=== PATIENT | female | born 1990 | race American Indian/Alaskan Native ===

== ENCOUNTER 2018-11-23 03:13 | Emergency (ER) | payer MEDICAID ==
[2018-11-23 03:31] VITALS: BP 127/62
[2018-11-23] MEDS ORDERED: IBUPROFEN 800 MG TAB PO ONE (04:42)
--- NOTE | 2018-11-23 04:53 | Emergency Department Report ---
ED Female HPI - General Chief complaint: Urogenital-Female Stated complaint: VAGINAL DISCHARGE Time Seen by Provider: 11/23/18 04:25 Source: patient Mode of arrival: Ambulatory Limitations: No Limitations - History of Present Illness Initial comments: 28-year-old -[place] female presents to the emergency room for vaginal swelling and discomfort. Patient reports that it yates and itches 2 days. Patient reports that she contacted her CLINICAL PSYCHIATRIST provider and was given a prescription for Diflucan. Patient states that she still having discomfort. Patient last menstrual period was 10/24/2018. She is 4 para 3. She admits to a last sexual encounter 2 days ago and that when she started having swelling in the vaginal area. Onset/Timin -: days(s) Location: other (vaginal orifice ) Severity: severe - Related Data Allergies Allergy/AdvReac Type Severity Reaction Status Date / Time No Known Allergies Allergy Unverified 11/23/18 03:31 ED Review of Systems ROS: Stated complaint: VAGINAL DISCHARGE Other details as noted in HPI ED Past Medical Hx - Past Medical History Previous Medical History?: No - Surgical History Past Surgical History?: No - Social History Smoking Status: Former Smoker Substance Use Type: None ED Physical Exam - General Limitations: No Limitations General appearance: alert, in no apparent distress - Head Head exam: Present: atraumatic, normocephalic - Eye Eye exam: Present: normal appearance - ENT ENT exam: Present: mucous membranes moist - Neck Neck exam: Present: normal inspection, full ROM - External exam: Present: erythema (vaginal orifice), swelling (vaginal orifice). Absent: lesions, lacerations Speculum exam: Absent: vaginal discharge Bi-manual exam: Present: normal bi-manual exam. Absent: cervical motion tendernes - Extremities Exam Extremities exam: Present: normal inspection - Back Exam Back exam: Present: normal inspection - Neurological Exam Neurological exam: Present: alert, oriented X3, normal gait - Psychiatric Psychiatric exam: Present: normal affect, normal mood - Skin Skin exam: Present: warm, dry, intact, normal color. Absent: rash ED Course Vital Signs 11/23/18 03:28 Temperature 97.7 F Pulse Rate 72 Respiratory 20 Rate Blood Pressure 127/62 O2 Sat by Pulse 98 Oximetry ED Medical Decision Making - Medical Decision Making 28-year-old -[place] female presents to the emergency room for vaginal swelling and discomfort. Patient reports that it yates and itches 2 days. Patient reports that she contacted her CLINICAL PSYCHIATRIST provider and was given a prescription for Diflucan. Patient states that she still having discomfort. Patient last menstrual period was 10/24/2018. She is 4 para 3. She admits to a last sexual encounter 2 days ago and that when she started having swelling in the vaginal area. GC Chlamydia and wet prep obtained and sent to lab Ibuprofen 800 mg ordered for pain management Exam was accompanied by a nurse Yasmine Critical care attestation.: If time is entered above; I have spent that time in minutes in the direct care of this critically ill patient, excluding procedure time. ED Disposition Clinical Impression: Vaginal irritation Disposition: DC- TO HOME OR SELFCARE Is pt being admited?: No Does the pt Need Aspirin: No Condition: Stable Additional Instructions: All test are negative for any acute findings. f/u with your CLINICAL PSYCHIATRIST. Referrals: PRIMARY CARE, [Primary Care Provider] - 3-5 Days Your,CLINICAL PSYCHIATRIST [Other] - 3-5 Days Forms: Work/School Release Form(ED)
[2018-11-23 06:17] LABS: Bilirubin,Urine NEG (Negative); Blood,Urine NEG (Negative); Color,Urine Straw (Yellow); Protein,Urine <15 mg/dL mg/dL (Negative); RBC,Urine < 1.0 /HPF (0.0-6.0); Urobilinogen,Urine < 2.0 mg/dL (<2.0)
[2018-11-23 06:22] LABS: HCG Qualitative,Urine Negative (Negative); WBC,Urine < 1.0 /HPF (0.0-6.0)
== END 2018-11-23 06:40 | disposition home or self-care (01) ==
LOC: EDSEX → ED 03:13
DX: N89.8 Other specified noninflammatory disorders of vagina (principal); Z87.891 Personal history of nicotine dependence
CPT/HCPCS: 81001; 81025; 87210; 87591; 99284